=== PATIENT | male | born 1960 | race Caucasian/White ===

== ENCOUNTER 2017-03-31 19:09 | Inpatient (IN) | payer OTHER ==
[~2017-03-31] VITALS: Ht 175.3 cm; Wt 100.7 kg
[2017-03-31 19:17] VITALS: BP 129/79; PULSE 86; RESP 16; TEMP 99.8; O2SAT 98
[2017-03-31] MEDS ORDERED: SODIUM CHLOR 0.9% 1000 ML INJ 1,000 ML IV SCH (19:36)
[2017-03-31] MEDS ORDERED: SODIUM CHLORIDE 0.9% FLUSH 10 ML FLUSH IVF PRN (19:45)
[2017-03-31] MEDS ORDERED: MORPHINE SULFATE 4 MG/ML INJ IV ONE ×3 (19:45→21:45)
[2017-03-31] MEDS ORDERED: ONDANSETRON HCL 4 MG/2 ML VIAL IVP ONE (19:45)
--- NOTE | 2017-03-31 19:46 | PD ---
HPI Chief Complaint: Fall Time Seen by Provider: 19:31 Travel History International Travel<30 days: No Contact w/Intl Traveler<30days: No Traveled to known affect area: No History of Present Illness HPI 57 y/o male presents s/p slip and fall off his roof while cleaning gutters notes pain to his low back and right heel. He states that he mainly landed on his heel then onto his back. He didn't hit his head or black out but felt dazed. He is not on any blood thinners. He denies other complaints. pain is sharp. severity is moderate. pain is worse with movement. he denies other concerns. PFSH Past Medical History Medical History: Denies Significant Hx Diminished Hearing: No Tetanus Vaccination: < 5 Years Influenza Vaccination: No Past Surgical History Surgical History: No Previous Surgery Social History Alcohol Use: Yes (OCC) Tobacco Use: No Substance Use: No Allergies-Medications (Allergen,Severity, Reaction): Coded Allergies: No Known Allergies (Unverified , 03/31/17) Reported Meds & Prescriptions Reported Meds & Active Scripts Active No Active Prescriptions or Reported Medications Review of Systems Except as stated in HPI: all other systems reviewed are Neg Physical Exam Narrative General: 57 y/o patient in no apparent distress Skin: warm and dry Eyes: pupils are equal ENT: no septal hematoma NECK: no pain with palpation and ROM in midline, nexus criteria negative Cardiovascular: Regular rate and rhythm Respiratory: normal respiratory effort noted, clear to auscultation bilaterally Abdomen: soft, nontender, nondistended Back: No step-offs, midline spine ttp to mid lumbar area only Extremities: Pain with palpation of right heel, no lacerations over, neurovascularly intact, no pain with palpation of other joints Neuro: awake, alert, sensation and motor grossly intact Data Data Last Documented VS Vital Signs Date Time Temp Pulse Resp B/P (MAP) Pulse Ox O2 Delivery O2 Flow Rate FiO2 03/31/17 20:30 80 22 164/86 (112) 99 03/31/17 19:17 99.8 Room Air Orders Orders Basic Metabolic Panel (Bmp) (03/31/17 19:36) Complete Blood Count With Diff (03/31/17 19:36) Prothrombin Time / Inr (Pt) (03/31/17 19:36) Act Partial Throm Time (Ptt) (03/31/17 19:36) Type And Screen (03/31/17 19:36) Chest, Single Ap (03/31/17 19:36) Ct Brain W/O Iv Contrast(Rout) (03/31/17 19:36) Ct Lumb Spine W/O Contrast (03/31/17 19:36) Iv Access Insert/Monitor (03/31/17 19:36) Ecg Monitoring (03/31/17 19:36) Oximetry (03/31/17 19:36) Morphine Inj (Morphine Inj) (03/31/17 19:45) Ondansetron Inj (Zofran Inj) (03/31/17 19:45) Sodium Chlor 0.9% 1000 Ml Inj (Ns 1000 M (03/31/17 19:36) Sodium Chloride 0.9% Flush (Ns Flush) (03/31/17 19:45) Foot, Heel Only (Hyq2xvm) (03/31/17 ) Morphine Inj (Morphine Inj) (03/31/17 20:45) Sodium Chlor 0.9% 1000 Ml Inj (Ns 1000 M (03/31/17 21:00) Admit Order (Ed Use Only) (03/31/17 21:35) Ct Cerv Spine W/O Contrast (03/31/17 21:35) Ct Abd/Pel W Iv Contrast(Rout) (03/31/17 21:35) Ct Thor Spine W/O Contrast (03/31/17 21:35) Morphine Inj (Morphine Inj) (03/31/17 21:45) Consult Orthopedic (03/31/17 ) Ct Thorax/ Chest W Iv Contrast (03/31/17 ) Labs Laboratory Tests Test 03/31/17 19:50 White Blood Count 12.2 TH/MM3 Red Blood Count 4.84 MIL/MM3 Hemoglobin 13.8 GM/DL Hematocrit 42.3 % Mean Corpuscular Volume 87.4 FL Mean Corpuscular Hemoglobin 28.6 PG Mean Corpuscular Hemoglobin Concent 32.7 % Red Cell Distribution Width 14.1 % Platelet Count 440 TH/MM3 Mean Platelet Volume 8.7 FL Neutrophils (%) (Auto) 72.7 % Lymphocytes (%) (Auto) 20.0 % Monocytes (%) (Auto) 6.4 % Eosinophils (%) (Auto) 0.5 % Basophils (%) (Auto) 0.4 % Neutrophils # (Auto) 8.9 TH/MM3 Lymphocytes # (Auto) 2.4 TH/MM3 Monocytes # (Auto) 0.8 TH/MM3 Eosinophils # (Auto) 0.1 TH/MM3 Basophils # (Auto) 0.0 TH/MM3 CBC Comment DIFF FINAL Differential Comment Prothrombin Time 10.8 SEC Prothromb Time International Ratio 1.0 RATIO Activated Partial Thromboplast Time 25.7 SEC Blood Urea Nitrogen 29 MG/DL Creatinine 1.43 MG/DL Random Glucose 128 MG/DL Calcium Level 8.9 MG/DL Sodium Level 137 MEQ/L Potassium Level 3.9 MEQ/L Chloride Level 103 MEQ/L Carbon Dioxide Level 24.8 MEQ/L Anion Gap 9 MEQ/L Estimat Glomerular Filtration Rate 51 ML/MIN [facility] Medical Decision Making Medical Screen Exam Complete: Yes Emergency Medical Condition: Yes Medical Record Reviewed: Yes (pmh confirmed) Interpretation(s) CBC & BMP Diagram 03/31/17 19:50 Calcium Level 8.9 Last 24 hours Impressions Thoracic Spine CT 03/31/172134 Signed Impressions: Service Date/Time: March 22:32 - CONCLUSION: 1. No acute fracture or subluxation. 2. Mild degenerative spondylosis of the thoracic spine. Josse Cortes MD Cervical Spine CT 03/31/172134 Signed Impressions: Service Date/Time: March 22:21 - CONCLUSION: 1. Small focus of air which appears to extend from the posterior disc space to the right neuroforamina at C3-4 of uncertain clinical significance. 2. No acute fracture or dislocation. Josse Cortes MD Abdomen/Pelvis CT 03/31/172134 Signed Impressions: Service Date/Time: March 22:32 - CONCLUSION: 1. No acute traumatic abnormality in the abdomen or pelvis. 2. Incidental note of subcentimeter hypodense cystic lesions in the superior and inferior poles of the right kidney there 2 small to characterize. Josse Cortes MD Lumbar Spine CT 03/31/171935 Signed Impressions: Service Date/Time: March 20:13 - CONCLUSION: 1. Acute fracture through the superior plate of L4. Osseous structures are otherwise intact. 2. Spinal canal and neural foramina appear to be adequate throughout. Edvin Montes MD Head CT 03/31/171935 Signed Impressions: Service Date/Time: March 20:10 - CONCLUSION: Nothing acute. No fracture or intracranial hemorrhage. Edvin Montes MD Chest X-Ray 03/31/171935 Signed Impressions: Service Date/Time: March 20:23 - CONCLUSION: 1. Scant lung markings in the medial aspect of the left upper lung. Findings are nonspecific. This could be artifactual versus focal emphysematous changes or small loculated pneumothorax. If patient's symptoms are left-sided, noncontrasted CT scan of the chest to be performed for further evaluation. 2. No obvious fracture. Edvin Montes MD Lower Extremity CT 03/31/17 0000 Signed Impressions: Service Date/Time: March 22:15 - CONCLUSION: 1. Impacted comminuted displaced calcaneal fracture, as above. Josse Cortes MD Foot X-Ray 03/31/17 0000 Signed Impressions: Service Date/Time: March 20:26 - CONCLUSION: Comminuted calcaneal fracture with minimal displacement of the fracture fragments. Edvin Montes MD Differential Diagnosis strain, fracture, dislocation, intracranial bleed.... Narrative Course will check trauma imaging and labs and reeval ed workup with calcaneal fracture and lumbar fracture. CT chest added on after cxr review and given lumbar fracture will add on C-spine and thoracic spine. Patient updated and will be admitted to trauma surgery Physician Communication Physician Communication dr Constantino states to admit, can have or so and neurosurgery evaluated in the morning, requests CT abdomen pelvis the added on additionally as well with other imaging dr taveras requests CT ankle also to be ordered which will be added on Diagnosis Primary Impression: Lumbar vertebral fracture Qualified Codes: S32.049A - Unspecified fracture of fourth lumbar vertebra, initial encounter for closed fracture Additional Impressions: Calcaneus fracture, right Qualified Codes: S92.001A - Unspecified fracture of right calcaneus, initial encounter for closed fracture Fall Qualified Codes: W19.XXXA - Unspecified fall, initial encounter Admitting Information Admitting Physician Requests: Admit Scripts No Active Prescriptions or Reported Meds Phuong Moore MD Mar 31, 2017 19:46
[2017-03-31 20:15] LABS: AUTOMATED NEUTROPHIL # 8.9 TH/MM3 (1.8-7.7); BASOPHIL % 0.4 % (0.0-2.0); EOSINOPHIL # 0.1 TH/MM3 (0-0.4); EOSINOPHIL % 0.5 % (0.0-4.0); HEMATOCRIT 42.3 % (39.0-51.0); HEMO FLAGS DIFF FINAL; LYMPHOCYTE # 2.4 TH/MM3 (1.0-4.8); MEAN CELL VOLUME 87.4 FL (80.0-100.0); MEAN CORPUSCULAR HEMOGLOBIN 28.6 PG (27.0-34.0); MEAN CORPUSCULAR HGB CONC 32.7 % (32.0-36.0); MONO % 6.4 % (0.0-8.0); NEUT % 72.7 % (16.0-70.0); PLATELET COUNT 440 TH/MM3 (150-450); RED BLOOD COUNT 4.84 MIL/MM3 (4.50-5.90); RED CELL DISTRIBUTION WIDTH 14.1 % (11.6-17.2); WHITE BLOOD COUNT 12.2 TH/MM3 (4.0-11.0)
[2017-03-31 20:18] LABS: APTT (PATIENT) 25.7 SEC (24.3-30.1); PROTHROMBIN TIME - PATIENT 10.8 SEC (9.8-11.6)
[2017-03-31 20:30] VITALS: BP 164/86; PULSE 80; RESP 22; O2SAT 99
--- NOTE | 2017-03-31 20:32 | RADRPT ---
EXAM DATE/TIME: 03/31/2017 20:10 [facility] COMPARISON: No previous studies available for comparison. INDICATIONS : Head pain due to fall. RADIATION DOSE: 56.35 CTDIvol (mGy) MEDICAL HISTORY : None SURGICAL HISTORY : None. ENCOUNTER: Initial ACUITY: 1 day PAIN SCALE: 7/10 LOCATION: Bilateral cranial TECHNIQUE: Multiple contiguous axial images were obtained of the head. Using automated exposure control and adj ustment of the mA and/or kV according to patient size, radiation dose was kept as low as reasonably a chievable to obtain optimal diagnostic quality images. DICOM format image data is available electro nically for review and comparison. FINDINGS: CEREBRUM: The ventricles are normal for age. No evidence of midline shift, mass lesion, hemorrhage or acute in farction. No extra-axial fluid collections are seen. POSTERIOR FOSSA: The cerebellum and brainstem are intact. The 4th ventricle is midline. The cerebellopontine angle i s unremarkable. EXTRACRANIAL: The visualized portion of the orbits is intact. SKULL: The calvaria is intact. No evidence of skull fracture. CONCLUSION: Nothing acute. No fracture or intracranial hemorrhage. Edvin Montes MD on March 31, 2017 at 20:29 Board Certified Radiologist. This report was verified electronically.
[2017-03-31 20:37] LABS: BICARBONATE 24.8 MEQ/L (21.0-32.0); POTASSIUM 3.9 MEQ/L (3.5-5.1)
[2017-03-31] MEDS ORDERED: SODIUM CHLOR 0.9% 1000 ML INJ 1,000 ML IV ONE (21:00)
--- NOTE | 2017-03-31 21:00 | RADRPT ---
EXAM DATE/TIME: 03/31/2017 20:23 [facility] COMPARISON: No previous studies available for comparison. INDICATIONS : Chest pain after fall from roof. MEDICAL HISTORY : None. SURGICAL HISTORY : None. ENCOUNTER: Initial ACUITY: 1 day PAIN SCORE: 10 LOCATION: Bilateral chest FINDINGS: A single view of the chest demonstrates the lungs to be symmetrically aerated with scant lung marking s in the medial aspect of the left chest. Findings could represent a focal emphysematous changes alth ough a small pneumothorax cannot be excluded. Lungs are otherwise clear. Osseous structures are gross ly intact. CONCLUSION: 1. Scant lung markings in the medial aspect of the left upper lung. Findings are nonspecific. This co uld be artifactual versus focal emphysematous changes or small loculated pneumothorax. If patient's s ymptoms are left-sided, noncontrasted CT scan of the chest to be performed for further evaluation. 2. No obvious fracture. Edvin Montes MD on March 31, 2017 at 20:55 Board Certified Radiologist. This report was verified electronically.
--- NOTE | 2017-03-31 21:21 | RADRPT ---
EXAM DATE/TIME: 03/31/2017 20:13 [facility] COMPARISON: No previous studies available for comparison. INDICATIONS : Low back pain from fall about 10 feet. RADIATION DOSE: 20.08 CTDIvol (mGy) MEDICAL HISTORY : None SURGICAL HISTORY : None. ENCOUNTER: Initial ACUITY: 1 day PAIN SCALE: 9/10 LOCATION: Bilateral low back. TECHNIQUE: Volumetric scanning of the lumbar spine was performed. Multiplanar reconstructions in the sagittal, coronal and oblique axial planes were performed. Using automated exposure control and adjustment of the mA and/or kV according to patient size, radiation dose was kept as low as reasonably achievable t o obtain optimal diagnostic quality images. DICOM format image data is available electronically for review and comparison. FINDINGS: Sagittal and coronal reconstruction show a acute compression fracture through the superior endplate o f L4. No retropulsed fragment. Lumbar vertebrae are otherwise intact. T12-L1: The thecal sac has a normal diameter. No evidence of disc bulge or protrusion. The neural foramina are patent bilaterally. L1-L2: The thecal sac has a normal diameter. No evidence of disc bulge or protrusion. The neural foramina are patent bilaterally. L2-L3: The thecal sac has a normal diameter. No evidence of disc bulge or protrusion. The neural foramina are patent bilaterally. L3-L4: The thecal sac has a normal diameter. No evidence of disc bulge or protrusion. The neural foramina are patent bilaterally. Acute fracture through the superior endplate of L4. L4-L5: The thecal sac has a normal diameter. No evidence of disc bulge or protrusion. The neural foramina are patent bilaterally. L5-S1: The thecal sac has a normal diameter. No evidence of disc bulge or protrusion. The neural foramina are patent bilaterally. CONCLUSION: 1. Acute fracture through the superior plate of L4. Osseous structures are otherwise intact. 2. Spinal canal and neural foramina appear to be adequate throughout. Edvin Montes MD on March 31, 2017 at 21:14 Board Certified Radiologist. This report was verified electronically.
--- NOTE | 2017-03-31 21:25 | RADRPT ---
EXAM DATE/TIME: 03/31/2017 20:26 [facility] COMPARISON: No previous studies available for comparison. INDICATIONS : Right heel pain after fall from roof. MEDICAL HISTORY : None. SURGICAL HISTORY : None. ENCOUNTER: Initial ACUITY: 1 day PAIN SCORE: 10/10 LOCATION: Right heel. FINDINGS: Two view examination of the right heel demonstrates comminuted calcaneal fracture with minimal displa cement of the fracture fragments. CONCLUSION: Comminuted calcaneal fracture with minimal displacement of the fracture fragments. Edvin Montes MD on March 31, 2017 at 21:23 Board Certified Radiologist. This report was verified electronically.
[2017-03-31] MEDS ORDERED: IOHEXOL 350 MG/ML 10 ML VIAL (for RAD DIAG) IVCONTRAST ONE (22:37)
--- NOTE | 2017-03-31 23:09 | RADRPT ---
EXAM DATE/TIME: 03/31/2017 22:15 [facility] COMPARISON: No previous studies available for comparison. INDICATIONS : Trauma, calcaneus fracture. RADIATION DOSE: 10.29 CTDIvol (mGy) MEDICAL HISTORY : None SURGICAL HISTORY : None. ENCOUNTER: Initial ACUITY: 1 day PAIN SCALE: 10/10 LOCATION: Right ankle TECHNIQUE: Volumetric scanning of the ankle was performed. Using automated exposure control and adjustment of t he mA and/or kV according to patient size, radiation dose was kept as low as reasonably achievable to obtain optimal diagnostic quality images. DICOM format image data is available electronically for review and comparison. FINDINGS: Comminuted impacted calcaneal fracture. There is severe impaction of the calcaneal body with displace ment of the anterior calcaneus. There are fracture lines involving the anterior process, calcaneal benavides lcus and tuberosity. Fractures extend to the talocalcaneal and calcaneocuboid joints. Talar dome appe ars intact. Remaining visualized osseous structures are intact. Ankle mortise is intact. No evidence of joint narrowing or effusion. Associated soft tissue swelling along the plantar aspect of the hind foot. No significant focal fluid collections. No radiopaque foreign bodies or subcutaneous emphysema. CONCLUSION: 1. Impacted comminuted displaced calcaneal fracture, as above. Josse Cortes MD on March 31, 2017 at 22:51 Board Certified Radiologist. This report was verified electronically.
--- NOTE | 2017-03-31 23:16 | RADRPT ---
EXAM DATE/TIME: 03/31/2017 22:21 [facility] COMPARISON: No previous studies available for comparison. INDICATIONS : TRauma, fell off roof. RADIATION DOSE: CTDIvol (mGy) MEDICAL HISTORY : None SURGICAL HISTORY : None. ENCOUNTER: Initial ACUITY: 1 day PAIN SCALE: 10/10 LOCATION: neck TECHNIQUE: Volumetric scanning of the cervical spine was performed. Multiplanar reconstructions in the sagittal, coronal and oblique axial planes were performed. Using automated exposure control and adjustment o f the mA and/or kV according to patient size, radiation dose was kept as low as reasonably achievable to obtain optimal diagnostic quality images. DICOM format image data is available electronically f or review and comparison. FINDINGS: Vertebral body heights are maintained. Osseous structures are intact without evidence for acute bony fracture. Dens is intact. Sagittal alignment is maintained. There is a normal C1-2 relationship. Bony fusion of C2-3. There is a small focus of air in the right C3-4 neural foramina. Facets are normally aligned. There is no significant prevertebral soft tissue hematoma. No significant cervical adenopat hy or gross mass. Mild degenerative spondylosis of the lower cervical spine most prominently at C5-7 with mild disc bulge and disc osteophytes. Bony central canal is patent. The thyroid appears unremark able. Visualized lung apices are clear without pneumothorax. CONCLUSION: 1. Small focus of air which appears to extend from the posterior disc space to the right neuroforamin a at C3-4 of uncertain clinical significance. 2. No acute fracture or dislocation. Josse Cortes MD on March 31, 2017 at 23:09 Board Certified Radiologist. This report was verified electronically.
--- NOTE | 2017-03-31 23:22 | RADRPT ---
EXAM DATE/TIME: 03/31/2017 22:32 [facility] COMPARISON: No previous studies available for comparison. INDICATIONS : TRauma, fell off roof. IV CONTRAST: 100 cc Omnipaque 350 (iohexol) IV ; Cumulative dose for multiple exams. ORAL CONTRAST: No oral contrast ingested. RADIATION DOSE: CTDIvol (mGy) ; Combined studies - Thorax/Abdomen/Pelvis MEDICAL HISTORY : None SURGICAL HISTORY : None. ENCOUNTER: Initial ACUITY: 1 day PAIN SCALE: 5/10 LOCATION: abdomen TECHNIQUE: Volumetric scanning of the abdomen and pelvis was performed. Using automated exposure control and ad justment of the mA and/or kV according to patient size, radiation dose was kept as low as reasonably achievable to obtain optimal diagnostic quality images. DICOM format image data is available electro nically for review and comparison. FINDINGS: LOWER LUNGS: Minimal bibasilar groundglass opacities likely reflecting atelectasis. LIVER: Homogeneous density without lesion. There is no dilation of the biliary tree. No calcified gallston es. SPLEEN: Normal size without lesion. PANCREAS: Within normal limits. KIDNEYS: Subcentimeter hypodense cystic lesions in the superior and inferior poles of the right kidney is too small to fully characterize. Kidneys are otherwise symmetrical in size and demonstrate symmetrical en hancement. No radiopaque renal calculi or hydronephrosis. ADRENAL GLANDS: Within normal limits. VASCULAR: There is no aortic aneurysm. BOWEL/MESENTERY: The stomach, small bowel, and colon demonstrate no acute abnormality. There is no free intraperitone al air or fluid. ABDOMINAL WALL: Within normal limits. RETROPERITONEUM: There is no lymphadenopathy. BLADDER: No wall thickening or mass. REPRODUCTIVE: Within normal limits. INGUINAL: There is no lymphadenopathy or hernia. MUSCULOSKELETAL: Within normal limits for patient age. No evidence for acute fracture. CONCLUSION: 1. No acute traumatic abnormality in the abdomen or pelvis. 2. Incidental note of subcentimeter hypodense cystic lesions in the superior and inferior poles of th e right kidney there 2 small to characterize. Josse Cortes MD on March 31, 2017 at 23:16 Board Certified Radiologist. This report was verified electronically.
--- NOTE | 2017-03-31 23:25 | RADRPT ---
EXAM DATE/TIME: 03/31/2017 22:32 [facility] COMPARISON: No previous studies available for comparison. INDICATIONS : Trauma, fell off roof. RADIATION DOSE: ; Reconstructed from previous dataset, no dose MEDICAL HISTORY : None SURGICAL HISTORY : None. ENCOUNTER: Initial ACUITY: 1 day PAIN SCALE: 10/10 LOCATION: upper back TECHNIQUE: Volumetric scanning of the thoracic spine was performed. Multiplanar reconstructions in the sagittal , coronal and oblique axial planes were performed. Using automated exposure control and adjustment o f the mA and/or kV according to patient size, radiation dose was kept as low as reasonably achievable to obtain optimal diagnostic quality images. DICOM format image data is available electronically f or review and comparison. FINDINGS: The vertebral bodies of the thoracic spine are in normal alignment without evidence of subluxation. Mild dextroscoliosis of the thoracic spine. Vertebral body heights are maintained. No evidence for ac [place] bony fracture. Degenerative spondylosis most probably from T4-T10 with disc space narrowing and o steophyte formation. Visualiz paraspinal soft tissues are unremarkable. CONCLUSION: 1. No acute fracture or subluxation. 2. Mild degenerative spondylosis of the thoracic spine. Josse Cortes MD on March 31, 2017 at 23:21 Board Certified Radiologist. This report was verified electronically.
--- NOTE | 2017-03-31 23:29 | RADRPT ---
EXAM DATE/TIME: 03/31/2017 22:29 [facility] COMPARISON: No previous studies available for comparison. INDICATIONS : Trauma, fell off roof. IV CONTRAST: 100 cc Omnipaque 350 (iohexol) IV ; Cumulative dose for multiple exams. RADIATION DOSE: CTDIvol (mGy) ; Combined studies - Thorax/Abdomen/Pelvis MEDICAL HISTORY : None SURGICAL HISTORY : None. ENCOUNTER: Initial ACUITY: 1 day PAIN SCALE: 5/10 LOCATION: chest TECHNIQUE: Volumetric scanning of the chest was performed. Using automated exposure control and adjustment of t he mA and/or kV according to patient size, radiation dose was kept as low as reasonably achievable to obtain optimal diagnostic quality images. DICOM format image data is available electronically for review and comparison. Follow-up recommendations for detected pulmonary nodules are based at a minimum on nodule size and pa tient risk factors according to Fleischner Society Guidelines. FINDINGS: LUNGS: No significant pneumothorax. Minimal ground glass opacities at the lung bases likely reflect atelecta sis. PLEURA: There is no pleural thickening or pleural effusion. MEDIASTINUM: The heart and great vessels demonstrate no acute abnormality. There is no mediastinal or hilar lymph adenopathy. No mediastinal hematoma. Aorta appears unremarkable without evidence for significant aort ic injury. AXILLAE: Within normal limits. No lymphadenopathy. SKELETAL: No evidence for significant acute fracture. MISCELLANEOUS: The visualized upper abdominal organs demonstrate no acute abnormality. CONCLUSION: 1. Minimal bibasal atelectasis. 2. No evidence for acute traumatic injury in the chest. Josse Cortes MD on March 31, 2017 at 23:24 Board Certified Radiologist. This report was verified electronically.
[2017-04-01] VITALS (7 sets, daily range): BP systolic 148–196; BP diastolic 77–101; PULSE 63–86; RESP 16–18; TEMP 96.1–99.8; O2SAT 92–96
[2017-04-01] MEDS: oxyCODONE/ACETAMINOPHEN 5 MG/325 MG TAB PO PRN ×5 (01:26→21:08)
[2017-04-01] MEDS: ONDANSETRON HCL 4 MG/2 ML VIAL IV PUSH PRN ×3 (01:26→15:44)
[2017-04-01] MEDS ORDERED: oxyCODONE/ACETAMINOPHEN 5 MG/325 MG TAB PO PRN (01:30)
[2017-04-01] MEDS: HYDROmorphone HCL PF 1 MG/ML VIAL IV PUSH PRN ×6 (01:55→23:19)
[2017-04-01] MEDS ORDERED: WALKER/ADULT/FO1 MIS (06:57)
[2017-04-01] MEDS ORDERED: ENDO7.5T10 PO (06:57)
[2017-04-01] MEDS ORDERED: SODIUM CHLORIDE 0.9% FLUSH 10 ML FLUSH IV FLUSH PRN (07:00)
[2017-04-01] MEDS ORDERED: SODIUM CHLOR 0.9% 1000 ML INJ 1,000 ML IV ONE (07:00)
--- NOTE | 2017-04-01 07:00 | PD.ORT.PN ---
Subjective Subjective Remarks s/p fall from ladder right heel pain. no other complaints. Objective Vitals Vital Signs Date Time Temp Pulse Resp B/P (MAP) Pulse Ox O2 Delivery O2 Flow Rate FiO2 04/01/17 04:20 96.4 70 17 182/83 (116) 96 04/01/17 04:00 Room Air 04/01/17 00:32 99.8 86 16 179/96 (123) 93 04/01/17 00:31 80 16 160/80 (106) 100 04/01/17 00:30 Room Air 03/31/17 20:30 80 22 164/86 (112) 99 03/31/17 19:17 99.8 86 16 129/79 (96) 98 Room Air I/O 03/31/17 03/31/17 03/31/17 04/01/17 04/01/17 04/01/17 07:00 15:00 23:00 07:00 15:00 23:00 Intake Total 2000 ml 0 ml Output Total 600 ml Balance 2000 ml -600 ml Intake Oral 0 ml IV Total 2000 ml Output Urine Total 600 ml Result Diagram: 03/31/17 1950 03/31/17 1950 Other Results Laboratory Tests Test 03/31/17 19:50 Prothromb Time International Ratio 1.0 RATIO Prothrombin Time 10.8 SEC (9.8-11.6) Imaging Last 24 hours Impressions Thoracic Spine CT 03/31/172134 Signed Impressions: Service Date/Time: March 22:32 - CONCLUSION: 1. No acute fracture or subluxation. 2. Mild degenerative spondylosis of the thoracic spine. Josse Cortes MD Cervical Spine CT 03/31/172134 Signed Impressions: Service Date/Time: March 22:21 - CONCLUSION: 1. Small focus of air which appears to extend from the posterior disc space to the right neuroforamina at C3-4 of uncertain clinical significance. 2. No acute fracture or dislocation. Josse Cortes MD Abdomen/Pelvis CT 03/31/172134 Signed Impressions: Service Date/Time: March 22:32 - CONCLUSION: 1. No acute traumatic abnormality in the abdomen or pelvis. 2. Incidental note of subcentimeter hypodense cystic lesions in the superior and inferior poles of the right kidney there 2 small to characterize. Josse Cortes MD Lumbar Spine CT 03/31/171935 Signed Impressions: Service Date/Time: March 20:13 - CONCLUSION: 1. Acute fracture through the superior plate of L4. Osseous structures are otherwise intact. 2. Spinal canal and neural foramina appear to be adequate throughout. Edvin Montes MD Head CT 03/31/171935 Signed Impressions: Service Date/Time: March 20:10 - CONCLUSION: Nothing acute. No fracture or intracranial hemorrhage. Edvin Montes MD Chest X-Ray 03/31/171935 Signed Impressions: Service Date/Time: March 20:23 - CONCLUSION: 1. Scant lung markings in the medial aspect of the left upper lung. Findings are nonspecific. This could be artifactual versus focal emphysematous changes or small loculated pneumothorax. If patient's symptoms are left-sided, noncontrasted CT scan of the chest to be performed for further evaluation. 2. No obvious fracture. Edvin Montes MD Objective Remarks RLE: +short leg splint. intact. good repair. NVI Assessment & Plan Assessment and Plan 1) Right Calcaneus Fx -NWB -elevate -maintain splint -plan for DC home and f/u in office next week for eval of swelling for surgery -walker -pain rx on chart -ortho cleared for DC Hans Montalvo Apr 01, 2017 07:00
[2017-04-01] MEDS: ENALAPRILAT 1.25 MG/ML VIAL IV PRN ×2 (08:10→15:44)
[2017-04-01] MEDS: DOCUSATE SODIUM 50 MG/SENNA 8.6 MG TAB PO SCH ×2 (08:11→21:07)
[2017-04-01] MEDS: BACITRACIN TOP OINT 15 GM TUBE TOP SCH ×2 (08:13→21:09)
--- NOTE | 2017-04-01 08:47 | MB ---
cc: CATHY GARCIA DATE OF CONSULTATION 04/01/2017 DATE OF ADMISSION 03/31/2017 REASON FOR CONSULTATION Right calcaneus fracture HISTORY Ramiro is a 57-year-old male who was up on his roof. He was cleaning out his gutters. He slipped and fell. He landed on the ground. He complains of the right ankle pain. He also complains of some mild back pain. He presented to the emergency room where x-rays and CT scan revealed a mildly comminuted right calcaneus fracture. He is currently awake and alert on the orthopedic floor. He denies loss of consciousness. PAST MEDICAL HISTORY SURGERIES None ALLERGIES None MEDICATIONS None ILLNESSES None SOCIAL HISTORY The patient denies tobacco or drug use. He drinks alcohol occasionally. FAMILY HISTORY Noncontributory. REVIEW OF SYSTEMS The patient denies headache, visual changes, neck pain, chest pain, shortness of breath, abdominal pain, nausea or recent weight loss. He complains of right ankle pain. Pain is worse with movement. PHYSICAL EXAMINATION The patient is a pleasant 57-year male in no acute distress. He is awake and alert. He is alert and oriented x3. VITAL SIGNS: Temperature 96.4, pulse 70, respirations 17, blood pressure 182/83, O2 sat 96% on room air. HEAD: The patient is normocephalic. EYES: Pupils are equal. NECK: Soft, nontender. Trachea is midline. ABDOMEN: Soft, nontender, nondistended. EXTREMITIES: Examination of the bilateral upper extremities reveals no pain or deformity with shoulder, elbow or wrist motion. He has intact sensation in all fingers. He has good cap refill in all fingers. Skin is intact. Contamination Consultant strength is +5. Examination of the left leg reveals no pain with hip, knee or ankle motion. Skin is intact. Dorsalis pedis pulses palpable. Skin is intact. Examination of the right leg reveals no pain with hip or knee motion. He has mild to moderate swelling of his ankle. Skin is intact. Sensation is grossly intact in the right foot. X-RAYS X-rays of the right calcaneus reviewed, x-rays reveal a mid mildly displaced comminuted right calcaneus fracture. A CT scan of the lumbar spine was reviewed. CT scan reveals a minimally displaced fracture through L4. IMPRESSION 1. Mildly comminuted right calcaneus fracture. 2. Nondisplaced L4 fracture. PLAN Treatment options were discussed with the patient regarding his right calcaneus. At this point, I would recommend physical therapy consultation. He would need to keep his foot elevated. He will need to be non-weightbearing. I discussed with him surgical versus nonsurgical options. At this point, the fracture does have some displacement of the posterior facet joint. Long-term, he may have better functional outcome with surgery. At this point, he will need to keep his foot elevated to help with swelling. His foot will not be ready for surgery for at least 7-10 days. I will ask that he follow up in the office in one week for repeat x-rays and examination of his foot for swelling. The patient is in agreement with this plan. All questions were answered. A mid-level provider in my office, nurse practitioner or PA, may see this patient on a follow-up basis and continue to implement the objective of this plan including: Starting or adjusting medications, injections of muscle, tendon, bursa or joints, cast application, orthotic or brace application, physical therapy, further radiographic studies including x-ray, MRI, CT, ultrasounds or bone scan, vascular studies, neurologic studies, or other specialist consultations, and proceeding with surgical management as appropriate. MD BRENDA Kumar/KODI /7:46 AM /8:33 AM
[2017-04-01] MEDS ORDERED: MAGN400S PO (10:36)
[2017-04-01] MEDS ORDERED: SENN1TAB PO (10:36)
--- NOTE | 2017-04-01 12:32 | HHI.PR ---
Subjective Subjective Notes PTD: 1 Patient is complaining of severe pain to right heel. Denies back pain at bedside states that his pain is not relieved with just oral medication. He begins "shaking all over in pain." And then requires IV Dilaudid for continued pain control. Objective Vitals/I&O Vital Signs Date Time Temp Pulse Resp B/P (MAP) Pulse Ox O2 Delivery O2 Flow Rate FiO2 04/01/17 08:16 Room Air 04/01/17 08:00 97.5 73 16 190/101 (130) 92 Labs Laboratory Tests Test 03/31/17 19:50 White Blood Count 12.2 Red Blood Count 4.84 Hemoglobin 13.8 Hematocrit 42.3 Mean Corpuscular Volume 87.4 Mean Corpuscular Hemoglobin 28.6 Mean Corpuscular Hemoglobin Concent 32.7 Red Cell Distribution Width 14.1 Platelet Count 440 Mean Platelet Volume 8.7 Neutrophils (%) (Auto) 72.7 Lymphocytes (%) (Auto) 20.0 Monocytes (%) (Auto) 6.4 Eosinophils (%) (Auto) 0.5 Basophils (%) (Auto) 0.4 Neutrophils # (Auto) 8.9 Lymphocytes # (Auto) 2.4 Monocytes # (Auto) 0.8 Eosinophils # (Auto) 0.1 Basophils # (Auto) 0.0 CBC Comment DIFF FINAL Differential Comment Prothrombin Time 10.8 Prothromb Time International Ratio 1.0 Activated Partial Thromboplast Time 25.7 Blood Urea Nitrogen 29 Creatinine 1.43 Random Glucose 128 Calcium Level 8.9 Sodium Level 137 Potassium Level 3.9 Chloride Level 103 Carbon Dioxide Level 24.8 Anion Gap 9 Estimat Glomerular Filtration Rate 51 Radiology Last Impressions Thoracic Spine CT 03/31/172134 Signed Impressions: Service Date/Time: March 22:32 - CONCLUSION: 1. No acute fracture or subluxation. 2. Mild degenerative spondylosis of the thoracic spine. Josse Cortes MD Cervical Spine CT 03/31/172134 Signed Impressions: Service Date/Time: March 22:21 - CONCLUSION: 1. Small focus of air which appears to extend from the posterior disc space to the right neuroforamina at C3-4 of uncertain clinical significance. 2. No acute fracture or dislocation. Josse Cortes MD Abdomen/Pelvis CT 03/31/172134 Signed Impressions: Service Date/Time: March 22:32 - CONCLUSION: 1. No acute traumatic abnormality in the abdomen or pelvis. 2. Incidental note of subcentimeter hypodense cystic lesions in the superior and inferior poles of the right kidney there 2 small to characterize. Josse Cortes MD Lumbar Spine CT 03/31/171935 Signed Impressions: Service Date/Time: March 20:13 - CONCLUSION: 1. Acute fracture through the superior plate of L4. Osseous structures are otherwise intact. 2. Spinal canal and neural foramina appear to be adequate throughout. Edvin Montes MD Head CT 03/31/171935 Signed Impressions: Service Date/Time: March 20:10 - CONCLUSION: Nothing acute. No fracture or intracranial hemorrhage. Edvin Montes MD Chest X-Ray 03/31/171935 Signed Impressions: Service Date/Time: March 20:23 - CONCLUSION: 1. Scant lung markings in the medial aspect of the left upper lung. Findings are nonspecific. This could be artifactual versus focal emphysematous changes or small loculated pneumothorax. If patient's symptoms are left-sided, noncontrasted CT scan of the chest to be performed for further evaluation. 2. No obvious fracture. Edvin Montes MD Lower Extremity CT 03/31/17 0000 Signed Impressions: Service Date/Time: March 22:15 - CONCLUSION: 1. Impacted comminuted displaced calcaneal fracture, as above. Josse Cortes MD Foot X-Ray 03/31/17 0000 Signed Impressions: Service Date/Time: March 20:26 - CONCLUSION: Comminuted calcaneal fracture with minimal displacement of the fracture fragments. Edvin Montes MD Chest CT 03/31/17 0000 Signed Impressions: Service Date/Time: March 22:29 - CONCLUSION: 1. Minimal bibasal atelectasis. 2. No evidence for acute traumatic injury in the chest. Josse Cortes MD Narrative Exam GENERAL: This is a 57-year-old male lying in bed. No distress noted. Painful. SKIN: Warm and dry. HEAD: Atraumatic. Normocephalic. EYES: PERRLA ENT: No nasal bleeding or discharge. Mucous membranes pink and moist. NECK: Trachea midline. No JVD. CARDIOVASCULAR: Regular rate and rhythm. RESPIRATORY: No accessory muscle use. Lungs are clear to auscultation. Breath sounds equal bilaterally. No distress or dyspnea. GASTROINTESTINAL: BS + x 4 quads. Abdomen soft, non-tender, nondistended. MUSCULOSKELETAL: Extremities without cyanosis, or edema. RIGHT lower extremity/ ankle with splint in place and wrapped in esau bandage. + peripheral pulses x 4 extremities. Warm with good capillary refill and sensation. MAEW. NEUROLOGICAL: Awake and alert. Normal speech and pattern. A/P Problem List: (1) Calcaneus fracture, right ICD Codes: S92.001A - Unspecified fracture of right calcaneus, initial encounter for closed fracture Status: Acute (2) Fall ICD Codes: W19.XXXA - Unspecified fall, initial encounter Status: Acute (3) Lumbar vertebral fracture ICD Codes: S32.009A - Unspecified fracture of unspecified lumbar vertebra, initial encounter for closed fracture Status: Acute Assessment and Plan ANGOON: This is a 57-year-old male who sustained a fall. The patient slipped and fell off his roof while cleaning his gutters. He landed on his heel , and then his back. No LOC. INJURIES: L4 endplate fracture RIGHT calcaneus fracture (non-op) Procedures: Consults: Neurosurgery. Orthopedics. Case management. Diet: Regular diet. Tolerating po diet. Encourage good po intake with each meal. Pulmonary: Encourage good pulmonary toileting. IS at bedside and pt encouraged to use. Rationale for use explained to patient, and verbalized understanding. PAIN Management: Percocet 5-10 mg every 4 hours. Dilaudid 1 mg every 3 hours for breakthrough pain. Added Robaxin 500 mg every 8 hours. Activity: BR. PT and OT ordered. (ADRIANNE CHRISTENSEN) (awaiting OK for OOB orders from neurosurgery) GI prophylaxis: Pepcid HS. Bowel regimen: Lissa-colace and MOM. LBM: 0 DVT prophylaxis: Mechanical VTE with SCDs. Chemical management TBD when cleared by NS. DC Planning: Case management consulted for assistance with final discharge disposition. Possible discharge tomorrow if pain is controlled and cleared by neurosurgery. Emotional support provided to patient and family at bedside and plan of care discussed. Discussed with RN at bedside. Patient is hemodynamically stable and being managed on the med/surg floor. The trauma team will round each day, and evaluate plan of care on a daily basis. L4 endplate fracture Neurosurgery consulted and assisting in management and care Pain management Bed rest until cleared by neurosurgery RIGHT calcaneus fracture (non-op) Orthopedics consulted and assisting in management and care Nonoperative at this time- due to swelling Splint and Esau wrap in place Pain management PT and OT ordered Patient is cleared for discharge from orthopedics Follow-up outpatient Surgery right lower extremity swelling has decreased. The exam, history, and the medical decision-making described in the above note were completed with the assistance of the mid-level provider. I reviewed and agree with the findings presented. I attest that I had a [id number] encounter with the patient on the same day, and personally performed and documented my assessment and findings in the medical record. Problem Qualifiers (1) Calcaneus fracture, right: Qualified Codes: S92.001A - Unspecified fracture of right calcaneus, initial encounter for closed fracture (2) Fall: Qualified Codes: W19.XXXA - Unspecified fall, initial encounter (3) Lumbar vertebral fracture: Qualified Codes: S32.049A - Unspecified fracture of fourth lumbar vertebra, initial encounter for closed fracture Nereida Santoyo Apr 01, 2017 12:32 Ramiro Angulo MD Apr 10, 2017 16:41
[2017-04-01] MEDS: METHOCARBAMOL 500 MG TAB PO SCH ×2 (13:53→21:07)
--- NOTE | 2017-04-01 16:34 | PD.CONS ---
History of Present Illness Service Neurosurgery Consult Requested By Dr. Constantino Reason for Consult L4 fracture Primary Care Physician No Primary Care Physician Diagnoses: History of Present Illness 57-year-old male states that he was up on his roof last evening cleaning out the gutters when he slipped and fell one story down to the ground. He landed on his right foot and heel and then fell backwards onto his low back. He did strike the back of his head but had no loss of consciousness. He denies any headache, blurred vision, diplopia, speech difficulty, memory loss, dizziness. He denies any pain we just numbness paresthesias in the upper extremities. No neck or thoracic region pain. He actually does not have any significant low back pain at the present time. There is no pain radiating to the left lower extremity and no definite numbness in the lower extremities. He has discomfort in the region of his right calcaneal fracture. Review of Systems Constitutional: DENIES: Fever Eyes: DENIES: Blurred vision, Diplopia Ears, nose, mouth, throat: DENIES: Hearing loss, Vertigo Respiratory: DENIES: Shortness of breath Cardiovascular: DENIES: Chest pain, Palpitations Gastrointestinal: DENIES: Abdominal pain, Nausea, Vomiting Genitourinary: DENIES: Urinary incontinence Musculoskeletal: COMPLAINS OF: Joint pain, Muscle aches, Stiffness, Joint Swelling, Back pain, DENIES: Neck pain Hematologic/lymphatic: DENIES: Bruising Neurologic: DENIES: Headache, Localized weakness Psychiatric: COMPLAINS OF: Anxiety Past Family Social History Allergies: Coded Allergies: No Known Allergies (Unverified , 03/31/17) Past Medical History No history of significant cardiac, pulmonary, gastrointestinal disease, diabetes , hypertension Past Surgical History No major surgeries in the past Reported Medications No prescription medications Social History Does not smoke cigarettes or drink significant amounts of alcohol Works repairing heavy equipment. Physical Exam Vital Signs Vital Signs Date Time Temp Pulse Resp B/P (MAP) Pulse Ox O2 Delivery O2 Flow Rate FiO2 04/01/17 12:00 96.1 66 16 187/96 (126) 96 04/01/17 08:16 Room Air 04/01/17 08:00 97.5 73 16 190/101 (130) 92 04/01/17 04:20 96.4 70 17 182/83 (116) 96 04/01/17 04:00 Room Air 04/01/17 00:32 99.8 86 16 179/96 (123) 93 04/01/17 00:31 80 16 160/80 (106) 100 04/01/17 00:30 Room Air 03/31/17 20:30 80 22 164/86 (112) 99 03/31/17 19:17 99.8 86 16 129/79 (96) 98 Room Air Physical Exam GENERAL: This is a well-nourished, well-developed patient, no apparent distress. SKIN: No abrasions, contusion, rash noted. Skin warm and dry. HEAD: Atraumatic. Normocephalic. No temporal or scalp tenderness. EYES: Sclerae are clear and nonicteric ENT: No facial edema or ecchymosis. No periorbital edema. No CSF otorrhea or rhinorrhea. No palpable facial fracture or deformity. NECK: Trachea midline. No cervical spine tenderness. MUSCULOSKELETAL: He has an external splint and dressing on the distal right lower extremity. No long bone or joint deformity noted in the upper extremities or left lower extremity. No left lower extremity edema. Left posterior tibial pulse 2+ NEUROLOGICAL: Awake and alert Oriented X 3 Speech is clear Conversant and appropriate Follow simple commands well Answers questions appropriately Reasonable judgment and insight Recent and remote memory are intact No evidence of anxiety or depression Pupils are mid range, reactive to accommodation. Extraocular movements facial motor movements intact. Sensation is intact to light touch in all extremities except distal right lower extremity not fully tested due to splint and dressing in place. Strength normal major flexion and extension groups all extremities except distal right lower extremity not fully tested due to fracture Sav's absent bilaterally No left ankle clonus Plantar responses absent on the left Fine motor movements intact upper extremities Laboratory Laboratory Tests Test 03/31/17 19:50 White Blood Count 12.2 Red Blood Count 4.84 Hemoglobin 13.8 Hematocrit 42.3 Mean Corpuscular Volume 87.4 Mean Corpuscular Hemoglobin 28.6 Mean Corpuscular Hemoglobin Concent 32.7 Red Cell Distribution Width 14.1 Platelet Count 440 Mean Platelet Volume 8.7 Neutrophils (%) (Auto) 72.7 Lymphocytes (%) (Auto) 20.0 Monocytes (%) (Auto) 6.4 Eosinophils (%) (Auto) 0.5 Basophils (%) (Auto) 0.4 Neutrophils # (Auto) 8.9 Lymphocytes # (Auto) 2.4 Monocytes # (Auto) 0.8 Eosinophils # (Auto) 0.1 Basophils # (Auto) 0.0 CBC Comment DIFF FINAL Differential Comment Prothrombin Time 10.8 Prothromb Time International Ratio 1.0 Activated Partial Thromboplast Time 25.7 Blood Urea Nitrogen 29 Creatinine 1.43 Random Glucose 128 Calcium Level 8.9 Sodium Level 137 Potassium Level 3.9 Chloride Level 103 Carbon Dioxide Level 24.8 Anion Gap 9 Estimat Glomerular Filtration Rate 51 Result Diagram: 03/31/17 1950 03/31/17 1950 Imaging 03/31/17 CT scan of the head, cervical spine, thoracic spine, lumbar spine images are reviewed by the undersigned. Agree with findings as noted below: The patient has a mild superior anterior L4 compression fracture without significant retropulsion. Mild chronic appearing L5-S1 disc displacement. Moderate loss of L5-S1 intervertebral disc height. Thoracic Spine CT 03/31/172134 Signed Impressions: Service Date/Time: March 22:32 - CONCLUSION: 1. No acute fracture or subluxation. 2. Mild degenerative spondylosis of the thoracic spine. Josse Cortes MD Cervical Spine CT 03/31/172134 Signed Impressions: Service Date/Time: March 22:21 - CONCLUSION: 1. Small focus of air which appears to extend from the posterior disc space to the right neuroforamina at C3-4 of uncertain clinical significance. 2. No acute fracture or dislocation. Josse Cortes MD Abdomen/Pelvis CT 03/31/172134 Signed Impressions: Service Date/Time: March 22:32 - CONCLUSION: 1. No acute traumatic abnormality in the abdomen or pelvis. 2. Incidental note of subcentimeter hypodense cystic lesions in the superior and inferior poles of the right kidney there 2 small to characterize. Josse Cortes MD Lumbar Spine CT 03/31/171935 Signed Impressions: Service Date/Time: March 20:13 - CONCLUSION: 1. Acute fracture through the superior plate of L4. Osseous structures are otherwise intact. 2. Spinal canal and neural foramina appear to be adequate throughout. Edvin Montes MD Head CT 03/31/171935 Signed Impressions: Service Date/Time: March 20:10 - CONCLUSION: Nothing acute. No fracture or intracranial hemorrhage. Edvin Montes MD Chest X-Ray 03/31/171935 Signed Impressions: Service Date/Time: March 20:23 - CONCLUSION: 1. Scant lung markings in the medial aspect of the left upper lung. Findings are nonspecific. This could be artifactual versus focal emphysematous changes or small loculated pneumothorax. If patient's symptoms are left-sided, noncontrasted CT scan of the chest to be performed for further evaluation. 2. No obvious fracture. Edvin Montes MD Lower Extremity CT 03/31/17 0000 Signed Impressions: Service Date/Time: March 22:15 - CONCLUSION: 1. Impacted comminuted displaced calcaneal fracture, as above. Josse Cortes MD Foot X-Ray 03/31/17 0000 Signed Impressions: Service Date/Time: March 20:26 - CONCLUSION: Comminuted calcaneal fracture with minimal displacement of the fracture fragments. Edvin Montes MD Chest CT 03/31/17 0000 Signed Impressions: Service Date/Time: March 22:29 - CONCLUSION: 1. Minimal bibasal atelectasis. 2. No evidence for acute traumatic injury in the chest. Josse Cortes MD Assessment and Plan Assessment and Plan Impression: 1. Relatively mild primarily anterior superior L4 compression fracture without significant retropulsion or canal compromise. 2. Chronic appearing L5-S1 disc displacement Recommendations: Findings were discussed at length with the patient and his family. Conservative treatment is recommended for the L4 compression fracture. He has a LSO brace available for when he is out of bed. Advised him that he will need to refrain from heavy lifting and pulling and bending for the next 3 months in order to allow the fracture to heal properly. Activity precautions and signs and symptoms to watch for been fully discussed. He may mobilize out of bed with LSO brace as tolerated from a neurosurgical standpoint. Risk of further compression deformity and possible retropulsion and neurologic injury and deficit have been fully discussed with the patient. Signs and symptoms to watch for been explained. He may sit on the side of the bed to place a brace A follow-up lumbar spine x-ray will be obtained in approximately 14 days. He can be followed as an outpatient for the L4 compression fracture. Dawson Parada MD Apr 01, 2017 16:34
[2017-04-01] MEDS ORDERED: FAMOTIDINE 20 MG TAB PO SCH (21:00)
[2017-04-01] MEDS ORDERED: MAGNESIUM HYDROXIDE SUSP 30 ML CUP PO SCH (21:00)
--- NOTE | 2017-04-01 21:58 | HHI.FF ---
Face to Face Verification Diagnosis: (1) Fall (2) Lumbar vertebral fracture (3) Calcaneus fracture, right Physical Therapy Order: Evaluate and Treat, Improve ambulation, Strength and gait training Home Health Nursing Order: Medical education Signs/symptoms of disease process Nursing assessment with vital signs I have seen patient Ramiro Rosales on 04/01/17. My clinical findings support the need for the requested home health care services because: Ltd mobility - disease progression Deconditioned w/ increased weakness Limited ability to care for self High risk of falls I certify that my clinical findings support that this patient is homebound because: Post-op weakness Unsteady gait/balance Unsafe to leave home unassisted Unable to use public transportation Nereida Santoyo Apr 01, 2017 21:57
[2017-04-02] VITALS: BP 140/88; PULSE 68; RESP 18; TEMP 97.5; O2SAT 95
[2017-04-02] MEDS: oxyCODONE/ACETAMINOPHEN 5 MG/325 MG TAB PO PRN ×2 (02:29→08:52)
[2017-04-02] MEDS: METHOCARBAMOL 500 MG TAB PO SCH ×2 (06:07→14:00)
[2017-04-02] MEDS: HYDROmorphone HCL PF 1 MG/ML VIAL IV PUSH PRN (07:36)
[2017-04-02 08:00] VITALS: BP 193/105; PULSE 74; RESP 18; TEMP 98.9; O2SAT 94
[2017-04-02] MEDS: DOCUSATE SODIUM 50 MG/SENNA 8.6 MG TAB PO SCH (08:52)
[2017-04-02] MEDS: ENALAPRILAT 1.25 MG/ML VIAL IV PRN (08:53)
[2017-04-02] MEDS: ONDANSETRON HCL 4 MG/2 ML VIAL IV PUSH PRN (08:53)
[2017-04-02] MEDS: BACITRACIN TOP OINT 15 GM TUBE TOP SCH (09:00)
[2017-04-02] MEDS ORDERED: fentaNYL 50 MCG/HR PATCH T-DERMAL SCH (10:45)
[2017-04-02] MEDS ORDERED: FENT50DI T-DERMAL (11:17)
[2017-04-02] MEDS ORDERED: METH500T3 PO (11:17)
[2017-04-02 12:00] VITALS: BP 173/97; PULSE 79; RESP 18; TEMP 97.9; O2SAT 93
--- NOTE | 2017-04-02 12:21 | PD.ORT.PN ---
Subjective Subjective Remarks Pain controlled Objective Vitals Vital Signs Date Time Temp Pulse Resp B/P (MAP) Pulse Ox O2 Delivery O2 Flow Rate FiO2 04/02/17 08:00 98.9 74 18 193/105 (134) 94 04/02/17 07:36 Room Air 04/02/17 03:42 18 04/02/17 01:20 Room Air 04/02/17 00:03 18 04/02/17 00:00 97.5 68 18 140/88 (105) 95 04/01/17 20:00 97.5 65 18 148/77 (100) 96 04/01/17 16:00 97.5 63 16 196/100 (132) 96 I/O 04/01/17 04/01/17 04/01/17 04/02/17 04/02/17 04/02/17 07:00 15:00 23:00 07:00 15:00 23:00 Intake Total 0 ml 600 ml 999 ml 560 ml Output Total 600 ml 200 ml 1225 ml Balance -600 ml 400 ml 999 ml -665 ml Intake Oral 0 ml 600 ml 560 ml IV Total 999 ml Output Urine Total 600 ml 200 ml 1225 ml # Voids 3 # Bowel Movements 0 0 Result Diagram: 03/31/17 1950 03/31/17 1950 Imaging Last 24 hours Impressions Thoracic Spine CT 03/31/172134 Signed Impressions: Service Date/Time: March 22:32 - CONCLUSION: 1. No acute fracture or subluxation. 2. Mild degenerative spondylosis of the thoracic spine. Josse Cortes MD Cervical Spine CT 03/31/172134 Signed Impressions: Service Date/Time: March 22:21 - CONCLUSION: 1. Small focus of air which appears to extend from the posterior disc space to the right neuroforamina at C3-4 of uncertain clinical significance. 2. No acute fracture or dislocation. Josse Cortes MD Abdomen/Pelvis CT 03/31/172134 Signed Impressions: Service Date/Time: March 22:32 - CONCLUSION: 1. No acute traumatic abnormality in the abdomen or pelvis. 2. Incidental note of subcentimeter hypodense cystic lesions in the superior and inferior poles of the right kidney there 2 small to characterize. Josse Corets MD Lumbar Spine CT 03/31/171935 Signed Impressions: Service Date/Time: March 20:13 - CONCLUSION: 1. Acute fracture through the superior plate of L4. Osseous structures are otherwise intact. 2. Spinal canal and neural foramina appear to be adequate throughout. Edvin Montes MD Head CT 03/31/171935 Signed Impressions: Service Date/Time: March 20:10 - CONCLUSION: Nothing acute. No fracture or intracranial hemorrhage. Edvin Montes MD Chest X-Ray 03/31/171935 Signed Impressions: Service Date/Time: March 20:23 - CONCLUSION: 1. Scant lung markings in the medial aspect of the left upper lung. Findings are nonspecific. This could be artifactual versus focal emphysematous changes or small loculated pneumothorax. If patient's symptoms are left-sided, noncontrasted CT scan of the chest to be performed for further evaluation. 2. No obvious fracture. Edvin Montes MD Objective Remarks RLE: +short leg splint. intact. good repair. NVI Assessment & Plan Assessment and Plan 1) Right Calcaneus Fx -NWB -elevate -maintain splint -plan for DC home today -walker -pain rx on chart -ortho cleared for DC Rajeev Willoughby MD Apr 02, 2017 12:21
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
[2017-04-02] MEDS ORDERED: ENOXAPARIN SODIUM 40 MG/0.4 ML SYRINGE SQ SCH (14:00)
--- NOTE | 2017-04-02 14:48 | HHI.DS ---
Discharge Summary Admission Date Mar 31, 2017 at 21:39 Discharge Date: Apr 02, 2017 Admitting Diagnosis lumbar and calcaneal fracture (1) Calcaneus fracture, right ICD Codes: S92.001A - Unspecified fracture of right calcaneus, initial encounter for closed fracture Status: Acute (2) Fall ICD Codes: W19.XXXA - Unspecified fall, initial encounter Status: Acute (3) Lumbar vertebral fracture ICD Codes: S32.009A - Unspecified fracture of unspecified lumbar vertebra, initial encounter for closed fracture Status: Acute Brief History Fall. CBC/BMP: 03/31/17 1950 03/31/17 1950 Significant Findings Laboratory Tests Test 03/31/17 19:50 White Blood Count 12.2 TH/MM3 (4.0-11.0) Neutrophils (%) (Auto) 72.7 % (16.0-70.0) Neutrophils # (Auto) 8.9 TH/MM3 (1.8-7.7) Blood Urea Nitrogen 29 MG/DL (7-18) Creatinine 1.43 MG/DL (0.60-1.30) Random Glucose 128 MG/DL (74-106) Estimat Glomerular Filtration Rate 51 ML/MIN (>89) Imaging Last Impressions Thoracic Spine CT 03/31/172134 Signed Impressions: Service Date/Time: March 22:32 - CONCLUSION: 1. No acute fracture or subluxation. 2. Mild degenerative spondylosis of the thoracic spine. Josse Cortes MD Cervical Spine CT 03/31/172134 Signed Impressions: Service Date/Time: March 22:21 - CONCLUSION: 1. Small focus of air which appears to extend from the posterior disc space to the right neuroforamina at C3-4 of uncertain clinical significance. 2. No acute fracture or dislocation. Josse Cortes MD Abdomen/Pelvis CT 03/31/172134 Signed Impressions: Service Date/Time: March 22:32 - CONCLUSION: 1. No acute traumatic abnormality in the abdomen or pelvis. 2. Incidental note of subcentimeter hypodense cystic lesions in the superior and inferior poles of the right kidney there 2 small to characterize. Josse Cortes MD Lumbar Spine CT 03/31/171935 Signed Impressions: Service Date/Time: March 20:13 - CONCLUSION: 1. Acute fracture through the superior plate of L4. Osseous structures are otherwise intact. 2. Spinal canal and neural foramina appear to be adequate throughout. Edvin Montes MD Head CT 03/31/171935 Signed Impressions: Service Date/Time: March 20:10 - CONCLUSION: Nothing acute. No fracture or intracranial hemorrhage. Edvin Montes MD Chest X-Ray 03/31/171935 Signed Impressions: Service Date/Time: , March 31, 2017 20:23 - CONCLUSION: 1. Scant lung markings in the medial aspect of the left upper lung. Findings are nonspecific. This could be artifactual versus focal emphysematous changes or small loculated pneumothorax. If patient's symptoms are left-sided, noncontrasted CT scan of the chest to be performed for further evaluation. 2. No obvious fracture. Edvin Montes MD Lower Extremity CT 03/31/17 0000 Signed Impressions: Service Date/Time: March 22:15 - CONCLUSION: 1. Impacted comminuted displaced calcaneal fracture, as above. Josse Cortes MD Foot X-Ray 03/31/17 0000 Signed Impressions: Service Date/Time: March 20:26 - CONCLUSION: Comminuted calcaneal fracture with minimal displacement of the fracture fragments. Edvin Montes MD Chest CT 03/31/17 0000 Signed Impressions: Service Date/Time: March 22:29 - CONCLUSION: 1. Minimal bibasal atelectasis. 2. No evidence for acute traumatic injury in the chest. Josse Cortes MD PE at Discharge GENERAL: This is a 57-year-old male lying in bed. No distress noted. Painful. SKIN: Warm and dry. HEAD: Atraumatic. Normocephalic. EYES: PERRLA ENT: No nasal bleeding or discharge. Mucous membranes pink and moist. NECK: Trachea midline. No JVD. CARDIOVASCULAR: Regular rate and rhythm. RESPIRATORY: No accessory muscle use. Lungs are clear to auscultation. Breath sounds equal bilaterally. No distress or dyspnea. GASTROINTESTINAL: BS + x 4 quads. Abdomen soft, non-tender, nondistended. MUSCULOSKELETAL: Extremities without cyanosis, or edema. RIGHT lower extremity/ ankle with splint in place and wrapped in esau bandage. + peripheral pulses x 4 extremities. Warm with good capillary refill and sensation. MAEW. NEUROLOGICAL: Awake and alert. Normal speech and pattern. Hospital Course KOBUK: This is a 57-year-old male who sustained a fall. The patient slipped and fell off his roof while cleaning his gutters. He landed on his heel , and then his back. No LOC. INJURIES: L4 endplate fracture RIGHT calcaneus fracture (non-op) Procedures: Consults: Neurosurgery. Orthopedics. Case management. The patient is now tolerating a po diet. Eating and drinking well. Patient has been complaining of pain to his right heel - he describes it "as the worst pain I have ever had." I discussed pain management with the patient at length. He discusses concerns over taking both Percocet and a fentanyl patch. I explained to him that this was ordered due to his severe complaint of pain. I have recommended to the patient to continue Percocet 5-10 mg every 4 hours PRN, with the addition of Robaxin 500 mg every 8 hours to aid as a muscle relaxant and help bridge the gap. I feel that once the patient is in the comfort of his own home, he will most likely not require a fentanyl patch. Patient is now agreeable to go home We have recommended the patient to continue with stool softeners while taking narcotic pain medications to prevent constipation. Pt has been participating in PT and OT while admitted at [facility] and has been ambulating with their assistance and independently . Home health care PT has been ordered. All follow up appointments have been provided and discussed with the patient. It is recommended that the patient keeps all his follow up appointments for continued recovery. Therefore, the patient is stable to be safely discharged home from a trauma surgery standpoint. Thank you for allowing us to participate in his care. We wish Ramiro the best in his recovery. Pain management Percocet 5-10 mg every 4 hours Dilaudid 1 mg IV every 3 hours breakthrough pain - DC and changed to fentanyl patch Removed fentanyl patch prior to discharge Robaxin 500 mg every 8 hours is at the pharmacy now picking up prescriptions. L4 endplate fracture Neurosurgery consulted and assisting in management and care Pain management OOB with TLSO brace. PT and OT ordered. Patient to follow-up outpatient with neurosurgery. RIGHT calcaneus fracture (non-op) Orthopedics consulted and assisting in management and care Nonoperative at this time- due to swelling Splint and Esau wrap in place Pain management PT and OT ordered Patient is cleared for discharge from orthopedics Follow-up outpatient Surgery right lower extremity swelling has decreased. Pt Condition on Discharge: Stable Discharge Disposition: Discharge Home Discharge Instructions DIET: Follow Instructions for: As Tolerated, No Restrictions Activities you can perform: Non Weight Bearing Activities to Avoid: Concussion Sports, Contact Sports, Weight Bearing, Strenuous Activity, Driving Other Activity Instructions: Nonweightbearing right lower extremity Nereida Santoyo Apr 02, 2017 14:48
[2017-04-03 08:00] VITALS: BP 163/93; PULSE 130; RESP 18; TEMP 97.4; O2SAT 95
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
== END 2017-04-02 16:25 | disposition home health service (06) | DRG 552 ==
LOC: NEPC 19:09 → NEDA 21:39 → N06A 04-01 00:24
PROVIDERS: ADMIT Surgery; ATTEND Surgery
DX: S32.049A Unspecified fracture of fourth lumbar vertebra, initial encounter for closed fracture (principal); S92.001A Unspecified fracture of right calcaneus, initial encounter for closed fracture; M51.27 Other intervertebral disc displacement, lumbosacral region; W13.2XXA Fall from, out of or through roof, initial encounter; Y93.H9 Activity, other involving exterior property and land maintenance, building and construction; Y92.008 Other place in unspecified non-institutional (private) residence as the place of occurrence of the external cause
CPT/HCPCS: 70450; 71010; 71260; 72125; 72128; 72131; 73650; 73700; 74177; 80048; 85025; 85610; 85730; 86850; 86900; 86901; 94150; 96361; 96374; 96375; J1170; J2270; J2405; J7030; L0484; Q9967

== ENCOUNTER 2017-04-13 05:31 | Observation (INO) | payer OTHER ==
[~2017-04-13] VITALS: Ht 175.3 cm; Wt 88.8 kg
[~2017-04-13 05:31] MED LIST: ENDO7.5T10 PO; FENT50DI T-DERMAL; MAGN400S PO; METH500T3 PO; SENN1TAB PO; WALKER/ADULT/FO1 MIS
[2017-04-13] MEDS ORDERED: VANCOMYCIN 1000 MG/NS 250 ML (for <70 kg) IV SCH ×2 (06:15)
[2017-04-13] MEDS ORDERED: LACTATED RINGER'S 1000 ML IV PRN (06:15)
[2017-04-13] MEDS ORDERED: CHLORHEXIDINE GLUCONATE 4% SOLN 120 ML BTL TOPICAL SCH (06:15)
[2017-04-13] MEDS ORDERED: SODIUM CHLORID 0.9% 500 ML IV PRN (06:15)
[2017-04-13] MEDS ORDERED: METOPROLOL TARTRATE 25 MG TAB PO PRN (06:15)
[2017-04-13] MEDS ORDERED: POVIDONE IODINE 5% (ANTISEPSIS KIT) 4 APPLICATIONS EACH NARE PRN (06:15)
[2017-04-13] MEDS ORDERED: INSULIN HUMAN REGULAR 1,000 UNITS/10 ML VIAL SQ PRN (06:15)
[2017-04-13] MEDS ORDERED: ceFAZolin 2 GM PREMIX 50 ML IV SCH (06:15)
[2017-04-13] MEDS ORDERED: CHLORHEXIDINE GLUCONATE 2 % 1 PACK (2 CLOTHS) TOPICAL PRN (06:15)
[2017-04-13] MEDS ORDERED: ADVI200T17 PO (06:43)
[2017-04-13] MEDS ORDERED: GENTAMICIN SULFATE 80 MG/2 ML VIAL ONE (07:00)
[2017-04-13] MEDS ORDERED: ACETAMINOPHEN 1000 MG/100 ML 100 ML IV ONE (07:16)
[2017-04-13] MEDS ORDERED: ENDO7.5T10 PO (09:03)
[2017-04-13] MEDS ORDERED: Post-op Orders (for Pharmacy) MISC XX ONE (09:15)
[2017-04-13] MEDS ORDERED: MORPHINE SULFATE 4 MG/ML INJ IV PUSH PRN (09:15)
[2017-04-13] MEDS ORDERED: NALOXONE HCL 0.4 MG/ML AMP IV PRN (09:15)
[2017-04-13] MEDS ORDERED: diphenhydrAMINE HCL 25 MG CAP PO PRN ×2 (09:15)
[2017-04-13] MEDS ORDERED: SODIUM CHLORIDE 0.9% FLUSH 5 ML FLUSH IVF PRN (09:15)
--- NOTE | 2017-04-13 09:18 | PD.OP ---
cc: Nabor Cotter MD Operative Report Date of Surgery: Apr 13, 2017 Preoperative Diagnosis: Displaced comminuted right calcaneus fracture Postoperative Diagnosis: Procedure: Open reduction internal fixation right calcaneus fracture Anesthesia: Gen. Surgeon: Nabor Cotter Typing Bookkeeper(s): SASHA Reyes PA-C The surgical procedure was assisted by my physician assistant spa director. My P.A. presence was necessary throughout this case for the manipulation and positioning of the surgical extremity. My P.A. was assisting me throughout the duration of this procedure. The skill set of a physician assistant spa director was medically necessary to complete this procedure. During the surgical case the neurosurgical nurse practitioner was working at the back table and the physician assistant spa director was directly assisting me. Operation and Findings: Tourniquet time -70- minutes at 275 mmHg Informed consent obtained, operative site was marked. The foot and ankle were seen and evaluated this morning. Soft tissue swelling had significantly improved and appeared to be ready for surgery. He was brought to the operating room and placed on the operating room table. He was given intravenous sedation, general endotracheal anesthesia. He received IV antibiotics and was placed in the lateral decubitus position. Right Foot and leg were prepped with alcohol, followed by Hibiclens, draped in usual sterile fashion. A time out procedure was preformed. The procedure began with a 4 centimeter incision over the lateral aspect of the calcaneus centers over the subtalar joint. A full thickness flap was carefully elevated. The perineal tendons were also mobilized. Periosteum was elevated off the calcaneous. At this point the leg was elevated. The tourniquet was inflated. Attention was now turned to exposure of the calcaneus fracture. The lateral wall was mildly comminuted. A Steinmann pin was placed into the talus and into the calcaneus. Laminar transportation broker was now placed to help distract the fracture. Articular surface was now visualized. Articular surface was in several fragments. The medial fragment was elevated and reduced up to the talus and the K-wire was used to hold provisional fixation. Next, the lateral and posterior fragments of the posterior facet were reduced. The talus was used as a template for reduction. The K-wires were used to hold provisional fixation. The laminar transportation broker was now used to distract the posterior tuberosity. A Shands pin was placed to help joystick the credit card analyst tuberosity into appropriate position. Multiple K-wires result provisional fixation. Multiplanar fluoroscopy confirmed well aligned fracture. The anterior process was now reduced. This keyed into appropriate position. Additional K wires were used to hold provisional fixation. 2.7 cortical lag screws were placed to compress the posterior facet fragments. At this point a Synthes calcaneus plate was selected. Plate was placed underneath the peroneal tendons. Plate was provisionally held the bone with K wires. 2.7 cortical lag screws were placed through the plate to compress the posterior facet fragments. Good compression was obtained. Additional cortical and locking screws were placed into the plate. 4 small percutaneous incisions were made around the posterior heel. 4 long 3.5 cortical screws were placed in the posterior tuberosity into the anterior process. All screws were predrilled and premeasured for appropriate lengths. Fluoroscopy confirmed appropriate alignment of fracture. Final fluoroscopy confirmed well aligned fracture with well-placed hardware. Wound was thoroughly irrigated. Tourniquet was released. Hemostasis was confirmed. Fascia was closed with 0 Vicryl, subcutaneous tissues closed with 3-0 Vicryl, and skin was closed with 3-0 nylon. Sterile dressings were applied. Patient was placed into a well molded well-padded splint. Patient was transferred to recovery in stable condition. Nabor Cotter MD Apr 13, 2017 09:18
[2017-04-13] MEDS ORDERED: DO NOT ADM ANY ANTICOAGULANT DRUGS PRN (09:45)
[2017-04-13] MEDS ORDERED: *MEPERIDINE 25 MG INJ VIAL PERIprocedural Use ONLY ONE (09:53)
[2017-04-13] MEDS: LACTATED RINGER'S 1000 ML INJ 1,000 ML IV SCH ×3 (10:00→20:25)
[2017-04-13] MEDS ORDERED: *morphine SULFATE 8 MG/ML PERIprocedure ONLY ONE (10:20)
[2017-04-13] MEDS ORDERED: DEXAMETHASONE SOD PHOS 4 MG/ML VIAL IV ONE (10:53)
[2017-04-13] MEDS ORDERED: ePHEDrine/NS 25 MG/5 ML SYR IV ONE (10:53)
[2017-04-13] MEDS ORDERED: PROPOFOL 200 MG/20 ML AMP IV ONE (10:53)
[2017-04-13] MEDS ORDERED: MIDAZOLAM HCL 2 MG/2 ML VIAL IV ONE (10:53)
[2017-04-13] MEDS ORDERED: PHENYLEPH/NS 1000 MCG/10 ML SYR IV ONE (10:53)
[2017-04-13] MEDS ORDERED: ONDANSETRON HCL 4 MG/2 ML VIAL IV PUSH ONE (10:53)
[2017-04-13] MEDS ORDERED: KETOROLAC TROMETHAMINE 60 MG/2 ML (IM) VIAL IM ONE (10:53)
[2017-04-13] MEDS ORDERED: LIDOCAINE HCL 1% PF 5 ML AMPULE OTHER ONE (10:53)
[2017-04-13] MEDS ORDERED: fentaNYL 50 MCG/HR PATCH T-DERMAL SCH (11:00)
[2017-04-13 11:15] VITALS: BP 161/91; PULSE 74; RESP 18; TEMP 95.8; O2SAT 97
[2017-04-13] MEDS: ACETAMINOPHEN/HYDROcodone 325 MG/10 MG TAB PO PRN ×2 (11:48→16:13)
[2017-04-13 12:46] VITALS: O2SAT 96
[2017-04-13] MEDS: KETOROLAC TROMETHAMINE 30 MG/ML (IVP) VIAL IV PUSH SCH ×2 (13:32→20:26)
[2017-04-13] MEDS: METHOCARBAMOL 500 MG TAB PO SCH ×2 (13:32→20:25)
--- NOTE | 2017-04-13 13:42 | RADRPT ---
EXAM DATE/TIME: 04/13/2017 08:57 [facility] COMPARISON: FLUOROSCOPY PORTABLE UP TO 1HR, April 13, 2017, 0:00. INDICATIONS : ORIF right calcaneous fracture. MEDICAL HISTORY : Unobtainable. SURGICAL HISTORY : Unobtainable. ENCOUNTER: Subsequent ACUITY: 2 weeks PAIN SCORE: Non-responsive. LOCATION: Right heel. FINDINGS: The exam demonstrates multiple screws and a plate in the patient's calcaneus. The alignment of the fi bula is excellent. CONCLUSION: Excellent alignment of the calcaneus post ORIF. Crow Chatman MD on April 13, 2017 at 13:39 Board Certified Radiologist. This report was verified electronically.
[2017-04-13 16:00] VITALS: BP 196/98; PULSE 72; RESP 18; TEMP 96.7; O2SAT 100
[2017-04-13] MEDS: ceFAZolin 2 GM PREMIX 50 ML IV SCH (16:15)
[2017-04-13 16:49] VITALS: O2SAT 96
[2017-04-13] MEDS: ONDANSETRON HCL 4 MG/2 ML VIAL IVP PRN ×2 (18:30→21:38)
[2017-04-13 19:30] VITALS: BP 168/92; PULSE 68; RESP 17; TEMP 97.2; O2SAT 96
[2017-04-13] MEDS ORDERED: cloNIDine HCL 0.1 MG TAB PO PRN (20:00)
[2017-04-13] MEDS: VANCOMYCIN INJ 1,000 MG in SODIUM CHLOR 0.9% 250 ML INJ 250 ML IV SCH (20:25)
[2017-04-13] MEDS: amLODIPine BESYLATE 5 MG TAB PO SCH (20:26)
[2017-04-13] MEDS: SODIUM CHLORIDE 0.9% FLUSH 5 ML FLUSH IVF SCH (20:26)
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
--- NOTE | 2017-04-13 20:42 | EKG ---
Date Performed: 04/13/2017 Time Performed: 06:13:16 PTAGE: 57 years EKG: Sinus rhythm BORDERLINE LEFT AXIS DEVIATION MODERATE INTRAVENTRICULAR CONDUCTION DELAY MINIMAL VOLTAGE CRITERIA F OR LVH, CONSIDER NORMAL VARIANT BORDERLINE ECG NO PREVIOUS TRACING DOCTOR: Kelvin Guerrero Interpretating Date/Time 04/13/2017 20:40:10
[2017-04-13] MEDS ORDERED: MAGNESIUM HYDROXIDE SUSP 30 ML CUP PO SCH (21:00)
[2017-04-14 00:40] VITALS: BP 187/108; PULSE 68; RESP 16; TEMP 96.7; O2SAT 97
[2017-04-14] MEDS: ONDANSETRON HCL 4 MG/2 ML VIAL IVP PRN ×4 (01:33→14:15)
[2017-04-14] MEDS: ceFAZolin 2 GM PREMIX 50 ML IV SCH ×3 (01:34→15:48)
[2017-04-14] MEDS: ACETAMINOPHEN/HYDROcodone 325 MG/10 MG TAB PO PRN ×3 (01:34→14:15)
[2017-04-14 03:35] VITALS: BP 139/87; PULSE 76; RESP 16; TEMP 96.8; O2SAT 99
[2017-04-14] MEDS: KETOROLAC TROMETHAMINE 30 MG/ML (IVP) VIAL IV PUSH SCH ×2 (05:25→14:00)
[2017-04-14] MEDS: METHOCARBAMOL 500 MG TAB PO SCH ×2 (05:25→14:00)
--- NOTE | 2017-04-14 06:40 | PD.ORT.PN ---
Subjective Subjective Remarks Pain controlled. No new complaints. Objective Vitals Vital Signs Date Time Temp Pulse Resp B/P (MAP) Pulse Ox O2 Delivery O2 Flow Rate FiO2 04/14/17 03:35 96.8 76 16 139/87 (104) 99 04/14/17 00:40 96.7 68 16 187/108 (134) 97 04/13/17 19:30 97.2 68 17 168/92 (117) 96 04/13/17 16:49 96 Nasal Cannula 2.00 04/13/17 16:00 96.7 72 18 196/98 (130) 100 04/13/17 12:46 96 Nasal Cannula 2.00 04/13/17 11:15 95.8 74 18 161/91 (114) 97 04/13/17 10:45 97.8 74 16 150/85 (106) 95 Nasal Cannula 2 04/13/17 10:30 76 15 153/86 (108) 94 Nasal Cannula 2 04/13/17 10:15 75 15 157/83 (107) 94 Nasal Cannula 2 04/13/17 10:00 77 15 148/89 (108) 99 Nasal Cannula 4 04/13/17 09:45 97.5 77 14 145/83 (103) 96 Nasal Cannula 4 I/O 04/13/17 04/13/17 04/13/17 04/14/17 04/14/17 04/14/17 07:00 15:00 23:00 07:00 15:00 23:00 Intake Total 1280 ml 60 ml Output Total 405 ml 220 ml Balance 875 ml -160 ml Intake Oral 60 ml IV Total 180 ml Other 1100 ml Output Urine Total 350 ml 200 ml Drainage Total 35 ml 20 ml Estimated Blood Loss 20 ml # Bowel Movements 0 Imaging Last 72 hours Impressions Foot X-Ray 04/13/17 0000 Signed Impressions: Service Date/Time: Thursday, April 13, 2017 08:57 - CONCLUSION: Excellent alignment of the calcaneus post ORIF. Crow Chatman MD Assessment & Plan Assessment and Plan Right calcaneus fracture with ORIF POD 1 Drain removed Maintain splint Elevation and nonweightbearing right lower extremity Case management for DME's of walker and wheelchair with elevated leg rest Discharged home today once DME's are acquired Follow-up with Dr. Cotter or PA in 2 weeks Sherman Mojica Jr. Apr 14, 2017 06:40
[2017-04-14] MEDS ORDERED: WALKER WHEELS/F1 MIS (06:43)
[2017-04-14] MEDS ORDERED: WHEEMIS3 (06:43)
--- NOTE | 2017-04-14 07:28 | HHI.DS ---
Discharge Summary Admission Date Apr 13, 2017 at 09:32 Discharge Date: Apr 14, 2017 Admitting Diagnosis Right Calcaneus Fracture Diagnosis: (1) Closed right calcaneal fracture Diagnosis: Principal ICD Codes: S92.001A - Unspecified fracture of right calcaneus, initial encounter for closed fracture Procedures ORIF of right calcaneus Hospital Course Patient admitted to the hospital on outpatient basis for ORIF of right calcaneus. He tolerated procedure well. He was transferred 6 north. He was out of bed on same day of surgery with minimal discomfort. His pain was controlled and his hemodynamically stable postoperatively 1. He was fit for discharge home with home healthcare. He will remain nonweightbearing on the right leg. He'll use a walker for ambulation. He will maintain his splint all times. He will elevate his foot. He'll follow Dr. Stinson or his PA in 2 weeks Pt Condition on Discharge: Good Discharge Disposition: Discharge Home Discharge Instructions Diet Instructions: As Tolerated, No Restrictions Activities You Can Perform: Non Weight Bearing Follow up Referrals: Orthopedics - 2 Weeks @ [facility] with Nabor Stinson MD New Medications: Walker with Front Wheels (Walker with Front Wheels) 1 Mis Mis EA .ROUTE DIRECTED, #1 0 Refills Wheelchair Elevated Leg (Wheelchair Elevated Leg) 1 Mis Mis EA .ROUTE DIRECTED, #1 0 Refills Continued Medications: Magnesium Hydroxide (Eq Milk of Magnesia) 400 Mg/5 Ml Marifer 30 ML PO HS for Constipation for 15 Days, MG Methocarbamol (Methocarbamol) 500 Mg Tab 500 MG PO Q8HR for Pain Management, #28 MG Oxycodone-Acetaminophen (Endocet) 7.5-325 mg Tab 1 TAB PO Q4H PRN for Pain Management, #60 TAB 0 Refills (This prescription has been renewed) Sennosides-Docusate Sodium (Senna Plus 8.6-50 mg) 8.6 Mg-50 Mg Tab 2 TAB PO BID for Constipation for 15 Days, TAB Discontinued Medications: Fentanyl Patch 72 HR (Fentanyl Patch 72 HR) 50 Mcg/Hr Patch 50 MCG T-DERMAL Q72H for Pain Management, #2 PATCH 0 Refills Remove old patch when new one placed. Ibuprofen-Diphenhydramine (Advil Pm) 200-38 Mg Tab 1 TAB PO HS PRN for PAIN/SLEEP, TAB 0 Refills Hans Montalvo Apr 14, 2017 07:28
[2017-04-14 07:43] VITALS: BP 133/74; PULSE 68; RESP 17; TEMP 97.8; O2SAT 94
[2017-04-14] MEDS ORDERED: AMLO5 PO (08:37)
[2017-04-14] MEDS: amLODIPine BESYLATE 5 MG TAB PO SCH (08:47)
[2017-04-14] MEDS: SODIUM CHLORIDE 0.9% FLUSH 5 ML FLUSH IVF SCH (08:50)
[2017-04-14 09:18] VITALS: O2SAT 96
[2017-04-14] MEDS: VANCOMYCIN INJ 1,000 MG in SODIUM CHLOR 0.9% 250 ML INJ 250 ML IV SCH (09:34)
[2017-04-14 12:00] VITALS: BP 137/75; PULSE 65; RESP 17; TEMP 96.7; O2SAT 95
[2017-04-14] MEDS: LACTATED RINGER'S 1000 ML INJ 1,000 ML IV SCH (15:12)
[2017-04-14 15:54] VITALS: BP 143/89; PULSE 67; RESP 17; TEMP 96.5; O2SAT 98
[2017-04-14] MEDS ORDERED: ZOFR4TAB3 SL (15:54)
[2017-04-16] MEDS ORDERED: REMOVE OLD DURAGESIC (FENTANYL) PATCH T-DERMAL SCH (11:00)
== END 2017-04-14 17:27 | disposition home or self-care (01) ==
LOC: HSDC 05:31 → HSDI 09:32 → N06B 11:05
PROVIDERS: ADMIT Orthopaedic Surgery Orthopaedic Trauma; ATTEND Orthopaedic Surgery Orthopaedic Trauma
DX: S92.001A Unspecified fracture of right calcaneus, initial encounter for closed fracture (principal); I10 Essential (primary) hypertension; E78.5 Hyperlipidemia, unspecified; W13.2XXA Fall from, out of or through roof, initial encounter; Y93.H9 Activity, other involving exterior property and land maintenance, building and construction; Y92.018 Other place in single-family (private) house as the place of occurrence of the external cause
CPT/HCPCS: 01480; 28415; 73650; 76000; 93005; 94150; 96361; 96374; 96376; 97116; 97162; C1713; G0378; G8987; G8988; J0131; J0690; J1100; J1580; J1885; J2175; J2250; J2270; J2370; J2405; J3010; J3370; J7050; J7120